=== PATIENT | male | born 1990 | race Caucasian/White ===

== ENCOUNTER 2016-12-10 23:13 | Emergency (ER) | payer OTHER ==
[2016-12-10 23:19] VITALS: BP 121/80; PULSE 75; RESP 16; TEMP 98.2; O2SAT 98
--- NOTE | 2016-12-10 23:29 | C.PDOC ---
History Of Present Illness 26 year old male with no PMH presents to ED with complaints of right upper back pain starting about an hour ago. Patient states he was standing watching fireworks when pain started. He described it as stabbing intermittent non- radiating, and worsened with movement, deep inspiration, laughing or coughing. He denies any chest pain SOB, injury. Time Seen by Provider: 12/10/16 23:22 Chief Complaint (Nursing): Back Pain History Per: Patient History/Exam Limitations: no limitations Onset/Duration Of Symptoms: Hrs Current Symptoms Are (Timing): Better Quality Of Discomfort: Stabbing, "Pain" Past Medical History Reviewed: Historical Data, Nursing Documentation, Vital Signs Vital Signs: Last Vital Signs Temp 98.2 F 12/10/16 23:17 Pulse 75 12/10/16 23:17 Resp 16 12/10/16 23:17 BP 121/80 12/10/16 23:17 Pulse Ox 98 12/10/16 23:59 - Medical History PMH: No Chronic Diseases Surgical History: No Surg Hx Family History: States: Unknown Family Hx - Social History Hx Tobacco Use: Yes Hx Alcohol Use: Yes Hx Substance Use: No - Immunization History Hx Tetanus Toxoid Vaccination: No Hx Influenza Vaccination: No Hx Pneumococcal Vaccination: No Review Of Systems Constitutional: Negative for: Fever, Weakness, Malaise Cardiovascular: Negative for: Chest Pain, Palpitations Respiratory: Negative for: Cough, Shortness of Breath Gastrointestinal: Negative for: Nausea, Vomiting, Abdominal Pain, Diarrhea Musculoskeletal: Positive for: Back Pain (upper). Negative for: Neck Pain, Shoulder Pain, Arm Pain Skin: Negative for: Rash, Bruising Neurological: Negative for: Weakness, Numbness, Headache, Dizziness Physical Exam - Physical Exam Appears: Non-toxic, No Acute Distress Skin: Warm, Dry, No Diaphoretic, No Rash, No Ecchymosis Head: Atraumatic, Normacephalic Eye(s): bilateral: Normal Inspection Nose: Normal Oral Mucosa: Moist Neck: Normal ROM, No Midline Cervical Tenderness, No Paracervical Tenderness, No Step Off Deformity Chest: Symmetrical, No Tenderness Cardiovascular: Rhythm Regular, No Murmur Respiratory: Normal Breath Sounds, No Rales, No Rhonchi, No Wheezing Gastrointestinal/Abdominal: Bowel Sounds (active), Soft, No Tenderness, No Mass , No Distention, No Guarding Back: Normal Inspection, No Vertebral Tenderness, No Muscle Spasm, Paraspinal Tenderness (mild tenderness on palpation to right subscapular area) Extremity: Bilateral: Atraumatic, Normal Color And Temperature, Normal ROM Neurological/Psych: Oriented x3, Normal Speech Gait: Steady ED Course And Treatment O2 Sat by Pulse Oximetry: 98 (room air) Pulse Ox Interpretation: Normal Medical Decision Making Medical Decision Makin26 year old male with upper back pain. Exam revealed reproducible muscle tenderness. Xrays ordered no vertebral fracture, CXR normal no pneumothorax or infiltrate. Patient declined any medication in ED as pain had mostly resolved on arrival. Patient remained well in no acute distress. Symptoms likely musculoskeltal. Recommend analgesics as needed Disposition Counseled Patient/Family Regarding: Diagnosis, Need For Followup - Disposition Referrals: [facility] [Outside] [facility] [Outside] Disposition: HOME/ ROUTINE Disposition Time: 23:50 Condition: STABLE Additional Instructions: Your xray was normal. Take Motrin as needed for pain every 6 hours, with food to not upset stomach. Follow up with your doctor if pain persists over one week. Return to the emergency department at any time if symptoms persist or worsen. Instructions: Back Pain (ED) - POA Present On Arrival: None - Clinical Impression Clinical Impression: Upper back pain on right side - PA / ENRICHMENT SPECIALIST / Resident Statement MD/DO has reviewed & agrees with the documentation as recorded.
--- NOTE | 2016-12-11 07:42 | RAD ---
HISTORY: pain to right upper back COMPARISON: No prior. TECHNIQUE: Chest PA and lateral FINDINGS: LUNGS: No active pulmonary disease. PLEURA: No significant pleural effusion identified. No pneumothorax apparent. CARDIOVASCULAR: Normal. OSSEOUS STRUCTURES: No significant abnormalities. VISUALIZED UPPER ABDOMEN: Normal. OTHER FINDINGS: None. IMPRESSION: No active disease.
--- NOTE | 2016-12-11 09:03 | RAD ---
HISTORY: pain right upper back COMPARISON: No prior. FINDINGS: BONES: Alignment maintained. No fracture. DISC SPACES: Normal. SOFT TISSUES: Normal. OTHER FINDINGS: None. IMPRESSION: Normal radiographs of the thoracic spine.
== END 2016-12-11 00:01 | disposition home or self-care (01) ==
LOC: C.ER 23:13
DX: M54.89 Other dorsalgia (principal)